=== PATIENT | female | born 1965 | race Caucasian/White ===

== ENCOUNTER 2018-10-30 10:19 | Outpatient (CLI) | payer BC | END 2018-10-30 10:20 | disposition critical access hospital (66) | LOC: EMS 10:19 | PROVIDERS: ATTEND Surgery | DX: R42 Dizziness and giddiness (principal); R55 Syncope and collapse | CPT/HCPCS: A0425; A0429 ==

== ENCOUNTER 2018-10-30 10:34 | Emergency (ER) | payer BC ==
[2018-10-30] MEDS ORDERED: SODIUM CHLORIDE 0.9% 1,000 ML IV ONE (11:28)
[2018-10-30 11:30] LABS: BASOPHILS % (AUTO) 0.5 %; EOSINOPHILS # (AUTO) 0.1 10^3/uL (0.0-0.7); EOSINOPHILS % (AUTO) 1.2 %; HGB - HEMOGLOBIN 12.5 g/dL (12.0-16.0); LYMPHOCYTES # (AUTO) 1.7 10^3/uL (1.5-3.5); LYMPHOCYTES % (AUTO) 28.5 %; MEAN CORPUSCULAR HEMOGLOBIN 31.3 pg (27.0-31.0); MEAN CORPUSCULAR HGB CONC 34.2 g/dL (32.0-36.0); MEAN CORPUSCULAR VOLUME 91.3 fL (81.0-99.0); MEAN PLATELET VOLUME 8.8 fL (7.9-10.8); MONOCYTES # (AUTO) 0.5 10^3/uL (0.0-1.0); MONOCYTES % (AUTO) 8.3 %; NEUTROPHILS # (AUTO) 3.7 10^3/uL (1.5-6.6); NEUTROPHILS % (AUTO) 61.2 %; PLT - PLATELET COUNT 249 10^3/uL (130-450); RED CELL DISTRIBUTION WIDTH 12.7 % (12.0-15.0)
--- NOTE | 2018-10-30 11:31 | ED Physician Documentation ---
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 She was standing at the kitchen sink washing a cup when she felt lightheaded and dizzy with associated shortness of breath and nausea. She sat down at the kitchen table, where her sister states she passed out. She was unresponsive for less than 1 minute before becoming verbally responsive after being laid down. She currently reports very slight substernal chest discomfort, but denies shortness of breath, or current nausea. She denies any recent illness. She has history of irritable bowel syndrome with her last bout occurring about 1 month ago. She has a history of a similar syncopal episode many years ago. Review of Systems Constitutional: denies: Fever Eyes: denies: Irritation Ears: denies: Tinnitus/ringing Nose: denies: Congestion Throat: denies: Sore throat Cardiac: reports: Chest pain / pressure (slight substernal). denies: Palpi tations Respiratory: denies: Dyspnea, Cough GI: denies: Abdominal Pain, Vomiting, Diarrhea : denies: Dysuria Skin: denies: Rash Musculoskeletal: denies: Back pain, Extremity swelling Neurologic: reports: Syncope. denies: Focal weakness, Numbness, Headache PD PAST MEDICAL HISTORY - Past Medical History Past Medical History: Yes Cardiovascular: None Respiratory: None Neuro: None Endocrine/Autoimmune: None GI: Other (IBS) FOUNDATION DIGGER: None : None HEENT: None Psych: Depression, Anxiety, Bipolar disorder Musculoskeletal: None Derm: None Other Past Medical History: IBS - Past Surgical History Past Surgical History: Yes General: Cholecystectomy /FOUNDATION DIGGER: section, Tubal ligation - Allergies Allergies/Adverse Reactions: Allergies Allergy/AdvReac Type Severity Reaction Status Date / Time milk Allergy Unknown Verified 10/30/18 10:45 oxytetracycline Allergy Anaphylaxis Verified 10/30/18 10:44 [From Terramycin] wheat Allergy Unknown Verified 10/30/18 10:45 - Social History Does the pt smoke?: Yes Smoking Status: Current every day smoker Does the pt drink ETOH?: No Does the pt have substance abuse?: No PD ED PE NORMAL - Vitals Vital signs reviewed: Yes (normal) - General General: Alert and oriented X 3, Well developed/nourished - HEENT HEENT: Atraumatic, Pharynx benign - Neck Neck: Supple, no meningeal sign, No adenopathy, No JVD - Cardiac Cardiac: RRR - Respiratory Respiratory: No respiratory distress, Clear bilaterally - Abdomen Abdomen: Soft, Non tender - Back Back: No CVA TTP - Derm Derm: No rash - Extremities Extremities: No edema, No calf tenderness / cord - Neuro Neuro: Alert and oriented X 3, No motor deficit, No sensory deficit, Normal speech Results - Vitals Vitals: Vital Signs - 24 hr 10/30/18 10/30/18 10/30/18 10:36 12:25 14:27 Temperature 36.2 C L Heart Rate 66 64 86 Respiratory 15 15 16 Rate Blood Pressure 111/70 103/58 L 124/76 O2 Saturation 98 98 98 Oxygen O2 Source Room air - EKG (time done) 10:39 Rate: Rate (enter#) (65) Rhythm: NSR Linn: Normal Intervals: Other (RSR' in V1) Ischemia: Non specific changes (Diffuse T-wave flattening.) Computer interpretation: Agree with computer - Labs Labs: Laboratory Tests 10/30/18 10/30/18 10/30/18 11:26 11:26 13:00 WBC 6.0 RBC 4.00 L Hgb 12.5 Hct 36.5 L MCV 91.3 MCH 31.3 H MCHC 34.2 RDW 12.7 Plt Count 249 MPV 8.8 Neut # (Auto) 3.7 Lymph # (Auto) 1.7 Greenlee # (Auto) 0.5 Eos # (Auto) 0.1 Baso # (Auto) 0.0 Absolute Nucleated RBC 0.00 Nucleated RBC % 0.0 Sodium 130 L Potassium 3.6 Chloride 96 L Carbon Dioxide 25 Anion Gap 9.0 BUN 13 Creatinine 0.5 Estimated GFR (MDRD) 129 Glucose 102 H Calcium 8.8 Total Bilirubin 0.6 AST 12 ALT 11 Alkaline Phosphatase 78 Troponin I Total Protein 6.5 L Albumin 3.8 Globulin 2.7 Albumin/Globulin Ratio 1.4 Lipase 34 Urine Color YELLOW Urine Clarity CLEAR Urine pH 7.5 Ur Specific [place] 1.010 Urine Protein TRACE Urine Glucose (UA) NEGATIVE Urine Ketones NEGATIVE Urine Occult Blood NEGATIVE Urine Nitrite NEGATIVE Urine Bilirubin NEGATIVE Urine Urobilinogen 0.2 (NORMAL) Ur Leukocyte Esterase NEGATIVE Ur Microscopic Review NOT INDICATED Urine Culture Comments NOT INDICATED Urine HCG, Qual NEGATIVE 10/30/18 Unknown WBC RBC Hgb Hct MCV MCH MCHC RDW Plt Count MPV Neut # (Auto) Lymph # (Auto) Greenlee # (Auto) Eos # (Auto) Baso # (Auto) Absolute Nucleated RBC Nucleated RBC % Sodium Potassium Chloride Carbon Dioxide Anion Gap BUN Creatinine Estimated GFR (MDRD) Glucose Calcium Total Bilirubin AST ALT Alkaline Phosphatase Troponin I < 0.04 Total Protein Albumin Globulin Albumin/Globulin Ratio Lipase Urine Color Urine Clarity Urine pH Ur Specific [place] Urine Protein Urine Glucose (UA) Urine Ketones Urine Occult Blood Urine Nitrite Urine Bilirubin Urine Urobilinogen Ur Leukocyte Esterase Ur Microscopic Review Urine Culture Comments Urine HCG, Qual PD MEDICAL DECISION MAKING - ED course Complexity details: reviewed results, re-evaluated patient, considered differential, d/w patient, d/w family ED course: The cause of the patient's postural dizziness and near syncope is uncertain at this time. I suspect dehydration is a contributing factor, but her lab results do not indicate concentrated urine specific gravity or a high BUN to creatinine ratio. There is no evidence of acute myocardial ischemia, cardiac dysrhythmia, and troponin is normal. I doubt pulmonary embolus. Treatment in the emergency department included administration of normal saline 2 L IV. Following IV fluids she felt subjectively much improved, and demonstrated ability to ambulate without lightheadedness. I discussed with her and her sister the results of her work-up, symptomatic treatment and outpatient follow-u p, as well as potentially worrisome signs or symptoms that should prompt reevaluation in the emergency department. Departure - Departure Disposition: 01 Home, Self Care Clinical Impression: Postural dizziness with near syncope Condition: Stable Instructions: ED Near Syncope Unkn Comments: Drink plenty of fluids. Follow-up with your primary physician within the next 1 to 2 weeks. Call to schedule an appointment. Return to the emergency department if you develop recurrent lightheadedness, dizziness, shortness of breath, or otherwise worsening symptoms. Discharge Date/Time: 10/30/18 14:29
[2018-10-30 11:43] LABS: ALBUMIN 3.8 g/dL (3.2-5.5); ALBUMIN/GLOBULIN RATIO 1.4 (1.0-2.2); BILIRUBIN,TOTAL 0.6 mg/dL (0.2-1.0); CALCIUM 8.8 mg/dL (8.5-10.3); CREATININE 0.5 mg/dL (0.4-1.0); TOTAL PROTEIN 6.5 g/dL (6.7-8.2)
[2018-10-30 13:10] LABS: BILIRUBIN,URINE NEGATIVE (NEGATIVE); GLUCOSE, URINE (UA) NEGATIVE (NEGATIVE); KETONES,URINE (UA) NEGATIVE (NEGATIVE); LEUKOCYTE ESTERASE, URINE NEGATIVE (NEGATIVE); NITRITE,URINE NEGATIVE (NEGATIVE); OCCULT BLOOD,URINE NEGATIVE (NEGATIVE); PH,URINE 7.5 PH (5.0-7.5); PROTEIN,URINE TRACE mg/dL (NEGATIVE); UROBILINOGEN,URINE 0.2 (NORMAL) E.U./dL (NORMAL)
[2018-10-30 13:13] LABS: CLARITY,URINE CLEAR (CLEAR); HCG UR QUAL NEGATIVE
[2018-10-30 14:27] VITALS: BP 124/76
== END 2018-10-30 14:29 | disposition home or self-care (01) ==
LOC: ED 10:34
DX: R42 Dizziness and giddiness (principal); R55 Syncope and collapse; F17.200 Nicotine dependence, unspecified, uncomplicated
CPT/HCPCS: 36415; 80053; 81001; 81003; 81025; 83690; 84484; 85025; 87086; 93005; 96360; 99283